=== PATIENT | male | born 1965 | race Caucasian/White ===

== ENCOUNTER → 2021-09-05 | Outpatient (CLI) | payer OTHER ==
--- NOTE | 2021-09-05 08:46 | REP ---
INDICATION: PERIUMBILICAL MASS COMPARISON: None. TECHNIQUE: PA and lateral. FINDINGS: The mediastinum and cardiac silhouette are normal. The lung kohli are clear and without acute consolidation, effusion, or pneumothorax. The skeletal structures are intact and normal. IMPRESSION: No acute cardiopulmonary process. <Electronically signed by Lobo Combs > 09/05/21 [id number]
--- NOTE | 2021-09-05 08:49 | REP ---
INDICATION: PERIUMBILICAL MASS COMPARISON: None. TECHNIQUE: Directed real time khan scale ultrasound examination using linear high-frequency transducer. FINDINGS: Ultrasound examination of the periumbilical region demonstrates a 2.5 cm fat containing periumbilical hernia. The peritoneal defect measures approximately 1.0 cm diameter and without significant change on Valsalva. IMPRESSION: Fat containing periumbilical hernia. <Electronically signed by Lobo Combs > 09/05/21 [id number]
[2021-09-05 09:44] LABS: HEMATOCRIT 51.5 % (42.0-52.0); HEMOGLOBIN 17.2 g/dl (13.5-17.5); MEAN CORPUSCULAR HGB CONC 33.4 g/dl (32.0-36.5); MEAN CORPUSCULAR VOLUME 83.9 fl (80.0-96.0); PLATELET COUNT, AUTOMATED 218 10^3/uL (150-450); RED BLOOD COUNT 6.14 10^6/uL (4.30-6.10); WHITE BLOOD COUNT 5.3 10^3/uL (4.0-10.0)
[2021-09-05 09:59] LABS: HEMOGLOBIN A1c 5.7 %
[2021-09-05 10:22] LABS: ALBUMIN 3.9 GM/DL (3.2-5.2); ALT/SGPT 33 U/L (12-78); BLOOD UREA NITROGEN 17 MG/DL (7-18); CALCIUM LEVEL 9.5 MG/DL (8.5-10.1); CARBON DIOXIDE LEVEL 27 MEQ/L (21-32); CHLORIDE LEVEL 108 MEQ/L (98-107); CHOLESTEROL LEVEL 202 MG/DL (<200); CHOLESTEROL RISK RATIO 4.488 (<5); GLOMERULAR FILTRATION RATE > 60.0 (>56); GLUCOSE, FASTING 96 MG/DL (70-100); HDL CHOLESTEROL 45 MG/DL (>40); LDL CHOLESTEROL 131 MG/DL (<100); NON-HDL-C 157 MG/DL; POTASSIUM SERUM 4.6 MEQ/L (3.5-5.1); SODIUM LEVEL 138 MEQ/L (136-145); TESTOSTERONE 581 NG/DL (241-827); TOTAL PROTEIN 7.4 GM/DL (6.4-8.2); TRIGLYCERIDES LEVEL 128 MG/DL (<150)
--- NOTE | 2021-09-06 14:00 | ECGEPIP ---
[facility] Test Date: 2021-09-05 Pat Name: LUNA MCKEON Department: Room: - Gender: Male [employer]: : 1965 Requested By: Tiffany Mathis Order Number: [id number] Reading MD: Agus Hull Measurements Intervals [place] Rate: 58 P: 45 RI: 140 QRS: 14 QRSD: 104 T: 24 QT: 410 QTc: 402 Interpretive Statements Sinus bradycardia Incomplete right bundle branch block Comparison tracing not on file Electronically Signed on 09-06-2021 14:00:16 EDT by Agus Hull
== END ==
LOC: M RAD 08:07
PROVIDERS: ATTEND Family Medicine
DX: R19.05 Periumbilic swelling, mass or lump (principal); I10 Essential (primary) hypertension; R53.83 Other fatigue; J44.9 Chronic obstructive pulmonary disease, unspecified

== ENCOUNTER → 2021-10-10 | Outpatient (REF) | payer OTHER ==
[2021-10-13 00:08] LABS: PSA % FREE 6.7 % (.); PSA FREE 0.44 ng/mL; PSA TOTAL 6.6 ng/mL (0.0-4.0)
== END ==
LOC: M SMT 12:33
PROVIDERS: ATTEND Urology
DX: R97.20 Elevated prostate specific antigen [PSA] (principal)

== ENCOUNTER → 2021-12-05 | Outpatient (REF) | payer OTHER | LOC: M SMT PRO 09:11 | PROVIDERS: ATTEND Urology | DX: C61 Malignant neoplasm of prostate (principal) ==

== ENCOUNTER → 2022-06-25 | Outpatient (REF) | payer OTHER ==
[2022-06-26 10:13] LABS: HEMATOCRIT 51.7 % (42.0-52.0); HEMOGLOBIN 17.1 g/dl (13.5-17.5); MEAN CORPUSCULAR HGB CONC 33.1 g/dl (32.0-36.5); MEAN CORPUSCULAR VOLUME 84.8 fl (80.0-96.0); PLATELET COUNT, AUTOMATED 150 10^3/uL (150-450); WHITE BLOOD COUNT 4.4 10^3/uL (4.0-10.0)
[2022-06-26 10:41] LABS: ALBUMIN 3.9 GM/DL (3.2-5.2); BILIRUBIN,TOTAL 0.4 MG/DL (0.2-1.0); CALCIUM LEVEL 8.8 MG/DL (8.5-10.1); CREATININE FOR GFR 1.36 MG/DL (0.70-1.30); GLOMERULAR FILTRATION RATE 57.7 (>56); POTASSIUM SERUM 4.2 MEQ/L (3.5-5.1); PROSTATIC SPECIFIC AG MONITOR 10.5 NG/ML (< 4.00); THYROID STIMULATING HORMONE 1.24 uIU/ML (0.358-3.740); TOTAL 25(OH) VITAMIN D 38.3 NG/ML (30.0-100.0); TOTAL PROTEIN 7.2 GM/DL (6.4-8.2)
[2022-06-26 10:43] LABS: HEMOGLOBIN A1c 5.8 %
== END ==
LOC: M LAB REF 09:35
PROVIDERS: ATTEND Family Medicine
DX: I10 Essential (primary) hypertension (principal)

== ENCOUNTER → 2023-02-07 | Outpatient (REF) | payer OTHER | LOC: M LAB REF 14:33 | PROVIDERS: ATTEND Urology | DX: C61 Malignant neoplasm of prostate (principal) ==

== ENCOUNTER → 2023-08-27 | Outpatient (CLI) | payer OTHER ==
[2023-08-27 12:17] LABS: HEMATOCRIT 52.2 % (42.0-52.0); MEAN CORPUSCULAR HEMOGLOBIN 27.9 pg (27.0-33.0); MEAN CORPUSCULAR HGB CONC 32.6 g/dl (32.0-36.5); MEAN CORPUSCULAR VOLUME 85.7 fl (80.0-96.0); PLATELET COUNT, AUTOMATED 205 10^3/uL (150-450); RED BLOOD COUNT 6.09 10^6/uL (4.30-6.10); WHITE BLOOD COUNT 6.1 10^3/uL (4.0-10.0)
[2023-08-27 12:37] LABS: HEMOGLOBIN A1c 5.2 % (4.0-6.0)
[2023-08-27 12:38] LABS: URIC ACID 6.4 MG/DL (3.7-9.2)
[2023-08-27 12:40] LABS: ALBUMIN 4.1 G/DL (3.2-5.2); ALKALINE PHOSPHATASE 83 U/L (46-116); ALT/SGPT 31 U/L (7.0-40); AST/SGOT 21 U/L (<34); BLOOD UREA NITROGEN 19 MG/DL (9-23); CALCIUM LEVEL 9.3 MG/DL (8.5-10.1); CARBON DIOXIDE LEVEL 30 MMOL/L (20-31); CHLORIDE LEVEL 106 MMOL/L (98-107); CREATININE FOR GFR 1.23 MG/DL (0.70-1.30); GLOMERULAR FILTRATION RATE > 60.0 (>56); GLUCOSE, FASTING 97 MG/DL (60-100); POTASSIUM SERUM 4.5 MMOL/L (3.5-5.1); SODIUM LEVEL 141 MMOL/L (136-145); TOTAL PROTEIN 7.1 G/DL (5.7-8.2)
[2023-08-27 12:42] LABS: TESTOSTERONE 440 NG/DL (241-827); THYROID STIMULATING HORMONE 1.282 uIU/ML (0.55-4.78)
== END ==
LOC: M RAD 11:26
PROVIDERS: ATTEND Family Medicine
DX: R53.83 Other fatigue (principal); I10 Essential (primary) hypertension; E03.9 Hypothyroidism, unspecified

== ENCOUNTER → 2024-03-26 | Outpatient (REF) | payer OTHER | LOC: M LABWUC 16:51 → M SMT 16:51 | PROVIDERS: ATTEND Urology | DX: C61 Malignant neoplasm of prostate (principal) ==

== ENCOUNTER → 2024-04-23 | Outpatient (REF) | payer OTHER | LOC: M SMT 13:25 | PROVIDERS: ATTEND Urology | DX: C61 Malignant neoplasm of prostate (principal) ==

== ENCOUNTER → 2024-07-05 | Outpatient (CLI) | payer OTHER ==
[~2024-07-05] MED LIST: DOXA1TAB85 PO
[2024-07-05 10:58] LABS: HEMATOCRIT 48.3 % (42.0-52.0); HEMOGLOBIN 15.9 g/dl (13.5-17.5); MEAN CORPUSCULAR HEMOGLOBIN 27.6 pg (27.0-33.0); MEAN CORPUSCULAR HGB CONC 32.9 g/dl (32.0-36.5); MEAN CORPUSCULAR VOLUME 83.9 fl (80.0-96.0); PLATELET COUNT, AUTOMATED 196 10^3/uL (150-450); RED BLOOD COUNT 5.76 10^6/uL (4.30-6.10); WHITE BLOOD COUNT 7.4 10^3/uL (4.0-10.0)
[2024-07-05 11:06] LABS: INR 0.95; PARTIAL THROMBOPLASTIN TIME 26.7 SECONDS (24.8-34.2); PROTHROMBIN TIME 12.4 SECONDS (12.5-14.5)
[2024-07-05 11:08] LABS: HEMOGLOBIN A1c 5.7 % (4.0-6.0)
[2024-07-05 11:33] LABS: THYROID STIMULATING HORMONE 1.237 uIU/ML (0.55-4.78)
[2024-07-05 12:02] LABS: BILIRUBIN,TOTAL 0.8 MG/DL (0.3-1.2); CALCIUM LEVEL 9.6 MG/DL (8.5-10.1); CHOLESTEROL RISK RATIO 5.34 (<5); CREATININE FOR GFR 1.64 MG/DL (0.70-1.30); GLOMERULAR FILTRATION RATE 46.2 (>56); HDL CHOLESTEROL 34.8 MG/DL (>40); LDL CHOLESTEROL 119.4 MG/DL (<100); NON-HDL-C 151.2 MG/DL; POTASSIUM SERUM 4.3 MMOL/L (3.5-5.1); TOTAL PROTEIN 7.1 G/DL (5.7-8.2)
== END ==
LOC: M RAD 09:44
PROVIDERS: ATTEND Family Medicine
DX: R53.83 Other fatigue (principal); I10 Essential (primary) hypertension; E03.9 Hypothyroidism, unspecified

== ENCOUNTER → 2024-07-27 | Outpatient (CLI) | payer OTHER | LOC: M RAD 10:04 | PROVIDERS: ATTEND Internal Medicine Pulmonary Disease | DX: R91.8 Other nonspecific abnormal finding of lung field (principal) ==

== ENCOUNTER → 2025-01-25 | Outpatient (CLI) | payer OTHER ==
[2025-01-25 18:47] LABS: HEMATOCRIT 47.1 % (42.0-52.0); HEMOGLOBIN 14.7 g/dl (13.5-17.5); MEAN CORPUSCULAR HEMOGLOBIN 25.9 pg (27.0-33.0); MEAN CORPUSCULAR HGB CONC 31.2 g/dl (32.0-36.5); MEAN CORPUSCULAR VOLUME 83.1 fl (80.0-96.0); PLATELET COUNT, AUTOMATED 250 10^3/uL (150-450); RED BLOOD COUNT 5.67 10^6/uL (4.30-6.10); WHITE BLOOD COUNT 7.1 10^3/uL (4.0-10.0)
[2025-01-25 18:53] LABS: HEMOGLOBIN A1c 5.6 % (4.0-6.0)
[2025-01-25 19:11] LABS: ALBUMIN 4.2 G/DL (3.2-5.2); BILIRUBIN,TOTAL 0.8 MG/DL (0.3-1.2); CALCIUM LEVEL 9.6 MG/DL (8.5-10.1); CHOLESTEROL RISK RATIO 4.45 (<5); CREATININE FOR GFR 1.58 MG/DL (0.70-1.30); HDL CHOLESTEROL 41.3 MG/DL (>40); LDL CHOLESTEROL 116.9 MG/DL (<100); NON-HDL-C 142.7 MG/DL; POTASSIUM SERUM 4.4 MMOL/L (3.5-5.1); TOTAL PROTEIN 7.4 G/DL (5.7-8.2)
[2025-01-25 19:12] LABS: THYROID STIMULATING HORMONE 1.357 uIU/ML (0.55-4.78)
== END ==
LOC: M WUC 11:48
PROVIDERS: ATTEND Family Medicine
DX: R53.83 Other fatigue (principal); I10 Essential (primary) hypertension; E03.9 Hypothyroidism, unspecified

== ENCOUNTER → 2025-02-23 | Outpatient (CLI) | payer OTHER ==
[2025-02-23 15:46] LABS: TESTOSTERONE < 7 NG/DL (241-827)
== END ==
LOC: M WUC 11:31
PROVIDERS: ATTEND Urology
DX: C61 Malignant neoplasm of prostate (principal)

== ENCOUNTER → 2025-02-25 | Outpatient (CLI) | payer OTHER ==
[2025-02-25 11:41] LABS: HEMATOCRIT 48.6 % (42.0-52.0); HEMOGLOBIN 15.7 g/dl (13.5-17.5); MEAN CORPUSCULAR HGB CONC 32.3 g/dl (32.0-36.5); MEAN CORPUSCULAR VOLUME 80.6 fl (80.0-96.0); PLATELET COUNT, AUTOMATED 234 10^3/uL (150-450); RED BLOOD COUNT 6.03 10^6/uL (4.30-6.10); WHITE BLOOD COUNT 7.2 10^3/uL (4.0-10.0)
[2025-02-25 11:57] LABS: INR 0.9; PROTHROMBIN TIME 12.5 SECONDS (12.5-14.5)
[2025-02-25 12:11] LABS: ALBUMIN 4.2 G/DL (3.2-5.2); BILIRUBIN,TOTAL 0.7 MG/DL (0.3-1.2); CALCIUM LEVEL 9.7 MG/DL (8.5-10.1); CHOLESTEROL RISK RATIO 2.96 (<5); CREATININE FOR GFR 1.48 MG/DL (0.70-1.30); GLOMERULAR FILTRATION RATE 54.2 (>56); HDL CHOLESTEROL 62.4 MG/DL (>40); NON-HDL-C 122.6 MG/DL; POTASSIUM SERUM 4.3 MMOL/L (3.5-5.1); TOTAL PROTEIN 7.6 G/DL (5.7-8.2)
[2025-02-25 12:13] LABS: THYROID STIMULATING HORMONE 2.281 uIU/ML (0.55-4.78)
[2025-02-25 12:34] LABS: HEMOGLOBIN A1c 5.5 % (4.0-6.0)
== END ==
LOC: M RAD 10:37
PROVIDERS: ATTEND Family Medicine
DX: Z01.818 Encounter for other preprocedural examination (principal); I10 Essential (primary) hypertension; J44.9 Chronic obstructive pulmonary disease, unspecified

== ENCOUNTER → 2025-03-09 | Outpatient (CLI) | payer OTHER | LOC: M RAD 09:17 | PROVIDERS: ATTEND Internal Medicine Nephrology | DX: I70.1 Atherosclerosis of renal artery (principal) ==

== ENCOUNTER → 2025-05-27 | Outpatient (CLI) | payer OTHER ==
[2025-05-27 18:27] LABS: BASO # 0.1 10^3/uL (0.0-0.2); BASO % 0.8 % (0.0-1.0); EOS # 0.3 10^3/uL (0.0-0.5); EOS % 4.1 % (0.0-3.0); LYMPH # 1.3 10^3/uL (1.5-5.0); LYMPH % 21.9 % (24.0-44.0); MONO # 0.5 10^3/uL (0.0-0.8); MONO % 8.0 % (2.0-8.0); NEUTROPHILS # 4.0 10^3/uL (1.5-8.5); NEUTROPHILS % 65.0 % (36.0-66.0); PLATELET COUNT, AUTOMATED 207 10^3/uL (150-450)
[2025-05-27 18:49] LABS: PROSTATIC SPECIFIC AG MONITOR 0.04 NG/ML (< 4.00)
[2025-05-27 18:53] LABS: ALT/SGPT 32.0 U/L (7.0-40); AST/SGOT 30.0 U/L (<34); CALCIUM LEVEL 9.2 MG/DL (8.5-10.1); CARBON DIOXIDE LEVEL 27.0 MMOL/L (20-31); CHLORIDE LEVEL 103.0 MMOL/L (98-107); CREATININE FOR GFR 1.68 MG/DL (0.70-1.30); GLOMERULAR FILTRATION RATE 46.5 (>56); POTASSIUM SERUM 3.7 MMOL/L (3.5-5.1); SODIUM LEVEL 143.0 MMOL/L (136-145)
[2025-05-27 18:54] LABS: TESTOSTERONE 8.0 NG/DL (241-827)
== END ==
LOC: M WUC 13:57
PROVIDERS: ATTEND Nurse Practitioner Family
DX: C61 Malignant neoplasm of prostate (principal)

== ENCOUNTER → 2025-08-09 | Outpatient (REF) | payer OTHER ==
[2025-08-09 17:38] LABS: ALT/SGPT 24.0 U/L (7.0-40); AST/SGOT 21.0 U/L (<34); CALCIUM LEVEL 9.1 MG/DL (8.5-10.1); CARBON DIOXIDE LEVEL 30.0 MMOL/L (20-31); CHLORIDE LEVEL 102.0 MMOL/L (98-107); CREATININE FOR GFR 1.41 MG/DL (0.70-1.30); GLOMERULAR FILTRATION RATE 57.4 (>56); POTASSIUM SERUM 3.7 MMOL/L (3.5-5.1); PSA SCREENING 0.04 NG/ML (< 4.00); SODIUM LEVEL 140.0 MMOL/L (136-145); TESTOSTERONE 11.0 NG/DL (241-827)
[2025-08-09 18:13] LABS: PLATELET COUNT, AUTOMATED 214 10^3/uL (150-450)
== END ==
LOC: M LABWUC 14:14
PROVIDERS: ATTEND Physician Assistant
DX: C61 Malignant neoplasm of prostate (principal)

== ENCOUNTER → 2025-11-03 | Outpatient (CLI) | payer OTHER | LOC: M RAD 15:30 | PROVIDERS: ATTEND Internal Medicine Pulmonary Disease | DX: Z12.2 Encounter for screening for malignant neoplasm of respiratory organs (principal); F17.218 Nicotine dependence, cigarettes, with other nicotine-induced disorders; R91.8 Other nonspecific abnormal finding of lung field; I25.10 Atherosclerotic heart disease of native coronary artery without angina pectoris ==

== ENCOUNTER → 2025-11-14 | Outpatient (CLI) | payer OTHER ==
[2025-11-14 13:53] LABS: PROSTATIC SPECIFIC AG MONITOR 0.11 NG/ML (< 4.00)
[2025-11-14 13:58] LABS: TESTOSTERONE 265.0 NG/DL (241-827)
== END ==
LOC: M WUC 11:23
PROVIDERS: ATTEND Nurse Practitioner Family
DX: C61 Malignant neoplasm of prostate (principal)